=== PATIENT | male | born 1985 | race Caucasian/White ===

== ENCOUNTER 2024-05-10 21:59 | Emergency (ER) | payer SELFPAY ==
[~2024-05-10] VITALS: Ht 188 cm; Wt 95.3 kg
[2024-05-10 22:01] VITALS: BP 125/95; PULSE 96; RESP 18; TEMP 98.1; O2SAT 99
== END 2024-05-10 23:32 | disposition home or self-care (01) ==
LOC: ER 21:59
DX: F10.10 Alcohol abuse, uncomplicated (principal); I82.409 Acute embolism and thrombosis of unspecified deep veins of unspecified lower extremity; Z59.00 Homelessness unspecified
CPT/HCPCS: 99283